=== PATIENT | female | born 1985 | race African-American/Black ===

== ENCOUNTER 2020-10-05 08:33 | Emergency (ER) | payer SELFPAY ==
--- NOTE | 2020-10-05 09:22 | ER Document Report ---
ED General - General Chief Complaint: Flank Pain Stated Complaint: LOW BACK PAIN TRAVEL OUTSIDE OF THE [place] IN LAST 30 DAYS: No - HPI Notes: Chief Complaint: Right flank pain Historian: History obtained from patient HPI: This is a 4-year-old female presents to the emergency department complaining of right sided low back pain x2 years. Patient says she had a positive urine test at home this week and [facility] L[facility] August [facility]. Has not had a confirmatory ultrasound. Says she had called [facility] today just inquiring about her chronic right low back pain and they told her just to go get it checked out somewhere. Right-sided low back pain is nonradiating worse with movement. 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 She or extremity weakness or numbness, incontinence, or saddle anesthesia. History of kidney stones. No dysuria or hematuria. Patient denies any abdominal pain at this time and no vaginal bleeding. She has no history of ectopic . She had 2 prior pregnancies with 2 living children. No other associated symptoms, denies chest pain, shortness of breath, nausea vomiting, fever, or chills. ROS: Constitutional: no fevers. HEENT: no GRE[place], sore throat, or vision changes. CV: no chest pain or palpitations. Resp: no cough or SOB. GI: no abdominal pain, or n/v/d. : . No dysuria, hematuria, or incont. No vaginal bleeding. MSK: Low back pain. Skin: no rashes or itching. Neuro: no seizures, weakness, numbness, or confusion. Hematological: no ecchymosis or easy bleeding. Endocrine: no polyuria/polydipsia, no heat/cold intolerance. Psych: no SI/HI, AH/VH or memory loss. PMHx: Reviewed and agree as charted by RN. PSHx: Reviewed and agree as charted by RN. SOCHx: Reviewed and agree as charted by RN. FHX: No significant familial comorbid conditions directly related to patient complaint Current Medications: Reviewed and agree with the patient medications as charted by the RN. Allergies: Reviewed and agree with the listed allergies as charted by the RN Physical Exam: Vitals: Reviewed in chart as documented by RN. General: Alert and in NAD. Head: Normocephalic; atraumatic Eyes: PERRLA, Conjunctivae clear sclerae non-icteric bilat ENT: no soft palate swelling or uvular deviation Neck: trachea midline, no unilateral swelling/tenderness/lymphadenopathy CV: RRR, no M/R/G; symmetric distal pulses Resp: respirations even and unlabored, CTA bilat. GI: abd soft and nondistended. NTTP. normal BS. no masses/HSM. MSK: FROM of all extremities. No midline CTL spine tenderness/deformity Mild right thoracic paraspinous tenderness. SLR neg bilat. no saddle anesthesia. Sensation intact to BLE. Pulses 2+ and equal to ble. Skin: warm, moist, good turgor. no rash/lesions Neuro: Alert and oriented X 4. following CN 2-12 intact. no unilateral weakness/numbness Psych: No SI/HI or AH/VH. ED Results: Medical Decision-Making: Patient presents with 2 years of ongoing right-sided back pain. He has no neurologic deficits. Suspect her symptoms are muscular skeletal. Patient is requesting to check her "kidneys ". We will check a UA as well as a BMP. pt denies abdominal pain or vaginal bleeding- abdominal exam is benign I have no currentof ectopic or spontaneous miscarriage. UA is reassuring and she has no dysuria and is afebrile, no concerns of pyelonephritis at this time. She is well-appearing and in no acute distress. If work-up is reassuring we will treat patient symptomatically for musculoskeletal back pain and she may follow-up with her SENIOR PRODUCER. Return factors were discussed. Labs reviewed and reassuring. DC home with above plan. Diagnosis: right sided back pain, Condition: stable Disposition: discharge - Related Data Allergies/Adverse Reactions: No Known Allergies Allergy (Verified 10/05/20 08:40) Past Medical History - Social History Smoking Status: Former Smoker Chew tobacco use (# tins/day): No Frequency of alcohol use: None Drug Abuse: None Family History: Reviewed & Not Pertinent Patient has homicidal ideation: No - Immunizations Hx Diphtheria, Pertussis, Tetanus Vaccination: Yes Physical Exam - Vital signs Vitals: Temp Pulse Resp BP Pulse Ox 98.0 F 98 16 115/71 100 10/05/20 08:36 10/05/20 08:36 10/05/20 08:36 10/05/20 08:36 10/05/20 08:36 Course - Vital Signs Vital signs: Temp Pulse Resp BP Pulse Ox 98.0 F 98 16 115/71 100 10/05/20 08:36 10/05/20 08:36 10/05/20 08:36 10/05/20 08:36 10/05/20 08:36 - Laboratory Result Diagrams: 10/05/20 10:23 10/05/20 09:15 Laboratory results interpreted by me: 10/05/20 10/05/20 10/05/20 09:15 09:15 09:15 Sodium 135.1 L Anion Gap 3 L Serum HCG, Qual POSITIVE H Ur Leukocyte Esterase SMALL H Discharge - Discharge Clinical Impression: Chronic right-sided thoracic back pain Qualifiers: Weeks of gestation: unspecified Qualified Code(s): Z34.90 - Encounter for supervision of normal , unspecified, unspecified trimester Condition: Stable Disposition: HOME, SELF-CARE Instructions: Chronic Back Pain ([facility]), ([facility]) Additional Instructions: May take Tylenol for your back pain. Printed instructions for home care. Follow-up with SENIOR PRODUCER to further discuss your symptoms. Return to the ER if your condition worsens or if you develop abdominal pain, vaginal bleeding, fevers, or other concerning signs or symptoms.
[2020-10-05 09:43] LABS: APPEARANCE,URINE SLIGHTLY-CLOUDY; BILIRUBIN,URINE NEGATIVE (NEGATIVE); COLOR,URINE YELLOW; GLUCOSE, URINE NEGATIVE (NEGATIVE); KETONES,URINE NEGATIVE (NEGATIVE); LEUKOCYTE ESTERASE,URINE SMALL (NEGATIVE); NITRITE,URINE NEGATIVE (NEGATIVE); PROTEIN,URINE NEGATIVE (NEGATIVE); UROBILINOGEN,URINE NEGATIVE mg/dL (<2.0)
[2020-10-05 10:05] LABS: ALBUMIN 4.2 g/dL (3.5-5.0); ALKALINE PHOSPHATASE 97 U/L (38-126); ASPARTATE AMINO TRANSFERASE 24 U/L (14-36); BILIRUBIN,DIRECT 0.1 mg/dL (0.0-0.4); BILIRUBIN,TOTAL 0.4 mg/dL (0.2-1.3); BLOOD UREA NITROGEN 12 mg/dL (7-20); CALCIUM 9.7 mg/dL (8.4-10.2); CHLORIDE 105 mmol/L (98-107); GLUCOSE 98 mg/dL (75-110); POTASSIUM 4.5 mmol/L (3.6-5.0)
[2020-10-05 10:10] LABS: CARBON DIOXIDE 27 mmol/L (22-30)
[2020-10-05 10:11] LABS: ANION GAP 3 (5-19)
[2020-10-05 10:32] LABS: ABSOLUTE BASOPHILS # (AUTO) 0.1 10^3/uL (0.0-0.2); ABSOLUTE EOSINOPHILS # (AUTO) 0.1 10^3/uL (0.0-0.6); ABSOLUTE LYMPHOCYTES (AUTO) 2.7 10^3/uL (0.5-4.7); ABSOLUTE MONOCYTES (AUTO) 0.7 10^3/uL (0.1-1.4); ABSOLUTE NEUT (AUTO) 6.6 10^3/uL (1.7-8.2); BASOPHILS % (AUTO) 0.7 % (0-2); EOSINOPHILS % (AUTO) 0.6 % (0-6); HEMOGLOBIN 13.6 g/dL (12.0-15.5); LYMPHOCYTES % (AUTO) 26.7 % (13-45); MEAN CORPUSCULAR HEMOGLOBIN 31.1 pg (27.0-33.4); MEAN CORPUSCULAR HGB CONC 34.1 g/dL (32.0-36.0); MEAN CORPUSCULAR VOLUME 91 fl (80-97); MONOCYTES % (AUTO) 6.8 % (3-13); PLATELET COUNT 303 10^3/uL (150-450); RED BLOOD COUNT 4.38 10^6/uL (3.72-5.28); RED CELL DISTRIBUTION WIDTH 13.1 % (11.5-14.0); SEGMENTED NEUTROPHILS % (AUTO) 65.2 % (42-78); TOTAL CELLS COUNTED % (AUTO) 100 %; WHITE BLOOD COUNT 10.1 10^3/uL (4.0-10.5)
[2020-10-05 11:07] VITALS: BP 109/78
== END 2020-10-05 11:08 | disposition home or self-care (01) ==
LOC: ER 08:33
DX: O99.891 Other specified diseases and conditions complicating pregnancy (principal); M54.9 Dorsalgia, unspecified; M54.5 Low back pain; O99.351 Diseases of the nervous system complicating pregnancy, first trimester; G89.29 Other chronic pain; O26.891 Other specified pregnancy related conditions, first trimester; Z87.442 Personal history of urinary calculi; Z3A.01 Less than 8 weeks gestation of pregnancy; Z87.891 Personal history of nicotine dependence
CPT/HCPCS: 36415; 80053; 81001; 84703; 85025; 99282

== ENCOUNTER 2020-11-03 20:22 | Emergency (ER) | payer MEDICAID ==
--- NOTE | 2020-11-03 21:20 | ER Document Report ---
ED Medical Screen (RME) - General Chief Complaint: Urinary Problem Stated Complaint: BLOODIN URINE Time Seen by Provider: 11/03/20 20:55 Notes: Patient is a G4, P2 7-week gestation female who presents emergency department with blood in her urine. Patient reports that she has right low back pain. States that she has a low back pain all the time. States that she noticed blood in her urine today. She is being seen by the health department for care. Exam: Nontender abdomen. I have greeted and performed a rapid initial assessment of this patient. A comprehensive ED assessment and evaluation of the patient, analysis of test results and completion of medical decision making process will be conducted by an additional ED providers. TRAVEL OUTSIDE OF THE [place] IN LAST 30 DAYS: No - Related Data Allergies/Adverse Reactions: No Known Allergies Allergy (Verified 10/05/20 08:40) Past Medical History - Social History Chew tobacco use (# tins/day): No Frequency of alcohol use: None Drug Abuse: None - Immunizations Hx Diphtheria, Pertussis, Tetanus Vaccination: Yes Physical Exam - Vital signs Vitals: Temp Pulse Resp BP Pulse Ox 98.3 F 85 19 115/76 100 11/03/20 20:29 11/03/20 20:29 11/03/20 20:29 11/03/20 20:29 11/03/20 20:29 Course - Vital Signs Vital signs: Temp Pulse Resp BP Pulse Ox 98.3 F 85 19 115/76 100 11/03/20 20:29 11/03/20 20:29 11/03/20 20:29 11/03/20 20:29 11/03/20 20:29
--- NOTE | 2020-11-03 23:22 | RADIOLOGY REPORT (SQ) ---
EXAM DESCRIPTION: US TRANSVAGINAL COMPLETED DATE/TME: 11/03/2020 22:48 CLINICAL HISTORY: 35 years Female, flank pain; 7 wks gestation COMPARISON: None TECHNIQUE: Transabdominal and transvaginal. LIMITATIONS: None. FINDINGS: Living intrauterine fetus measures 5w6d with ISA of 06/30/2021. No cardiac activity identified at this time. [place]-rump length is 0.3-cm. 1.3 x 0.5 x 0.7 cm subchorionic hemorrhage. 5.0 x 1.8 x 3.5-cm right ovary, 3.1-cm left ovary, 3.2 x 2.2 x 2.1-cm likely left corpus luteum, nabothian cyst, and no free fluid appear otherwise unremarkable. IMPRESSION: Early intrauterine . No measurable cardiac activity. 1.3 cm perigestational hemorrhage. Differential diagnosis includes early viable gestation or ongoing gestational loss. Consider laboratory-ultrasound surveillance in 2 weeks or sooner.
[2020-11-04 00:07] LABS: APPEARANCE,URINE CLEAR; BILIRUBIN,URINE NEGATIVE (NEGATIVE); COLOR,URINE STRAW; GLUCOSE, URINE NEGATIVE (NEGATIVE); KETONES,URINE NEGATIVE (NEGATIVE); LEUKOCYTE ESTERASE,URINE TRACE (NEGATIVE); NITRITE,URINE NEGATIVE (NEGATIVE); PROTEIN,URINE NEGATIVE (NEGATIVE); URINE SPECIFIC GRAVITY 1.003; UROBILINOGEN,URINE NEGATIVE mg/dL (<2.0)
[2020-11-04 01:40] LABS: ABSOLUTE BASOPHILS # (AUTO) 0.1 10^3/uL (0.0-0.2); ABSOLUTE EOSINOPHILS # (AUTO) 0.1 10^3/uL (0.0-0.6); ABSOLUTE MONOCYTES (AUTO) 0.8 10^3/uL (0.1-1.4); ABSOLUTE NEUT (AUTO) 6.7 10^3/uL (1.7-8.2); BASOPHILS % (AUTO) 0.7 % (0-2); EOSINOPHILS % (AUTO) 1.1 % (0-6); HEMATOCRIT 39.6 % (36.0-47.0); HEMOGLOBIN 13.4 g/dL (12.0-15.5); LYMPHOCYTES % (AUTO) 34.1 % (13-45); MEAN CORPUSCULAR HEMOGLOBIN 30.7 pg (27.0-33.4); MEAN CORPUSCULAR HGB CONC 33.7 g/dL (32.0-36.0); MEAN CORPUSCULAR VOLUME 91 fl (80-97); MONOCYTES % (AUTO) 6.4 % (3-13); PLATELET COUNT 312 10^3/uL (150-450); RED BLOOD COUNT 4.35 10^6/uL (3.72-5.28); SEGMENTED NEUTROPHILS % (AUTO) 57.7 % (42-78); TOTAL CELLS COUNTED % (AUTO) 100 %; WHITE BLOOD COUNT 11.7 10^3/uL (4.0-10.5)
[2020-11-04 02:04] LABS: ALBUMIN 4.9 g/dL (3.5-5.0); ALKALINE PHOSPHATASE 86 U/L (38-126); ANION GAP 8 (5-19); ASPARTATE AMINO TRANSFERASE 22 U/L (14-36); BILIRUBIN,DIRECT 0.1 mg/dL (0.0-0.4); BILIRUBIN,TOTAL 0.5 mg/dL (0.2-1.3); BLOOD UREA NITROGEN 9 mg/dL (7-20); CALCIUM 10.6 mg/dL (8.4-10.2); CARBON DIOXIDE 28 mmol/L (22-30); CHLORIDE 102 mmol/L (98-107); GLUCOSE 109 mg/dL (75-110); POTASSIUM 4.1 mmol/L (3.6-5.0)
--- NOTE | 2020-11-04 06:09 | ER Document Report ---
ED GI/ - General Chief Complaint: Urinary Problem Stated Complaint: BLOODIN URINE Time Seen by Provider: 11/03/20 20:55 Primary Care Provider: [facility] [Provider Group] - Follow up as needed Mode of Arrival: Ambulatory Information source: Patient Notes: 35-year-old female presented to ED for complaint of blood in her urine. She states she just noticed it today. She states she also has low back pain but she has had this for years and it is in no different than it normally is. She states she is of 5 para 2 with 2 abortions. She states she should be 7 weeks . She states she will be seen at the health department for p renatal care. She denies any pain in the abdomen. Constitutional: Negative for fever. HENT: Negative for sore throat. Eyes: Negative for visual changes. Cardiovascular: Negative for chest pain. Respiratory: Negative for shortness of breath. Gastrointestinal: Negative for abdominal pain, vomiting or diarrhea. Genitourinary: Patient states she is 7 weeks and has some blood in her urine. Musculoskeletal: States she has had low back pain for years and she still has the same low back pain. Skin: Negative for rash. Neurological: Negative for headaches, weakness or numbness. 10 point ROS negative except as marked above and in HPI. PHYSICAL EXAMINATION: GENERAL: Well-appearing, well-nourished and in no acute distress. HEAD: Atraumatic, normocephalic. EYES: Pupils equal round extraocular movements intact, conjunctiva are normal. ENT: Nares patent NECK: Normal range of motion LUNGS: No respiratory distress Musculoskeletal: Normal range of motion NEUROLOGICAL: Normal speech, normal gait. PSYCH: Normal mood, normal affect. SKIN: Warm, Dry, normal turgor, no rashes or lesions noted. TRAVEL OUTSIDE OF THE [place] IN LAST 30 DAYS: No - HPI Patient complains to provider of: Other - Blood in the urine that started yesterday Onset: Yesterday Timing/Duration: Intermittent - States she noticed blood in the urine Quality of pain: Other - Back pain that she states is chronic she has had it for years Severity at maximum: Moderate Severity in ED: Mild, Moderate Pain Level: 3 Location: Low back - Chronic low back pain Vaginal bleeding (Compared to normal period): Spotting - She just noted some blood in her urine LMP: August 31, 2020 : 5 Para: 2 Abortions: 2 heart tones (bpm): 0 ABO type: O Rh factor: pos OB ultrasound done: Yes vitamins taken: Yes Associated symptoms: Other - Chronic back pain Exacerbated by: Denies Relieved by: Denies Similar symptoms previously: Yes Recently seen / treated by doctor: No - Related Data Allergies/Adverse Reactions: No Known Allergies Allergy (Verified 10/05/20 08:40) Past Medical History - General Information source: Patient - Social History Smoking Status: Never Smoker Chew tobacco use (# tins/day): No Frequency of alcohol use: None Drug Abuse: None Lives with: Family Family History: Reviewed & Not Pertinent Patient has suicidal ideation: No Patient has homicidal ideation: No - Past Medical History Cardiac Medical History: Reports: None Pulmonary Medical History: Reports: None EENT Medical History: Reports: None Neurological Medical History: Reports: None Endocrine Medical History: Reports: None Renal/ Medical History: Reports: None Malignancy Medical History: Reports: None GI Medical History: Reports: None Musculoskeletal Medical History: Reports Other - Chronic back pain Skin Medical History: Reports None Psychiatric Medical History: Reports: None Traumatic Medical History: Reports: None Infectious Medical History: Reports: None Surgical Hx: Negative Past Surgical History: Reports: None - Immunizations Hx Diphtheria, Pertussis, Tetanus Vaccination: Yes Physical Exam - Vital signs Vitals: Temp Pulse Resp BP Pulse Ox 98.3 F 85 19 115/76 100 11/03/20 20:29 11/03/20 20:29 11/03/20 20:29 11/03/20 20:29 11/03/20 20:29 Course - Re-evaluation Re-evalutation: 11/04/20 09:26 Labs and ultrasound were discussed with patient written report of labs and ultrasound were given to patient. Patient was informed that there was no cardiac activity on the ultrasound. She was informed that this could be because of her early or it could be it was a pending miscarriage. Patient was instructed to please return in 48 hours to the lab to get a follow-up serum quant to determine viability of the . Verbalized understanding and agreement with treatment plan and patient was discharged home. - Vital Signs Vital signs: Temp Pulse Resp BP Pulse Ox 98.1 F 66 16 126/74 H 100 11/04/20 06:33 11/04/20 06:33 11/04/20 06:33 11/04/20 06:33 11/04/20 06:33 - Laboratory Results Result Diagrams: 11/04/20 01:20 11/04/20 01:20 Laboratory Results Interpreted: 11/03/20 11/04/20 11/04/20 22:45 01:20 01:20 WBC 11.7 H Calcium 10.6 H Beta HCG, Quant 92963.00 H Urine Blood LARGE H Ur Leukocyte Esterase TRACE H Critical Laboratory Results Reviewed: No Critical Results - Radiology Results Critical Radiology Results Reviewed: No Critical Results Discharge - Discharge Clinical Impression: Hematuria Qualifiers: Hematuria type: unspecified type Qualified Code(s): R31.9 - Hematuria, unspecified Chronic back pain Qualifiers: Back pain location: thoracic back pain Back pain laterality: unspecified Qualified Code(s): M54.6 - Pain in thoracic spine Condition: Stable Disposition: HOME, SELF-CARE Instructions: [facility] Additional Instructions: Hematuria Hematuria, or blood in your urine, can be caused by minor medical problems, such as a bladder infection, or by more serious medical conditions, such as kidney stones or even tumors of the bladder or kidney. If the cause of the hematuria is known (such as a bladder infection) and can be treated, it may not need further evaluation. If the cause is not known, it will usually require further evaluation by a specialist, such as a urologist. In particular, unexplained hematuria in the older patient must be evaluated to rule out a serious condition, such as a bladder or kidney tumor. If the hematuria worsens or you are passing clots and then are unable to urinate, you should be re-evaluated. A catheter may need to be placed in the bladder to permit passage of urine. If you develop high fever, severe pain, or other new or worsening symptoms, return to the Emergency Department for re- evaluation. Your ultrasound for the baby did not show a heartbeat at this time. This can be due to it being too early to show the heartbeat. We will get a repeat hCG in 48 hours and then review this with you. Chronic Back Pain Chronic back pain (pain persisting longer than three months) is a common problem. A medical evaluation can look for herniated disc, arthritis, osteoporosis, tumors, and infections. But at least half the time, there's no obvious treatable cause. Anxiety and depression tend to worsen back pain. A heating pad, used for 15-20 minutes at a time, can ease pain. For this type of back pain, narcotic medicines should be avoided. Muscle relaxers are rarely helpful unless you're having spasms. Activity is important. Find an aerobic exercise program that your back can tolerate. Too much rest makes back pain worse. Specific back exercises are usually prescribed to strengthen the back and abdominal muscles. Often, a physical therapist can help. Avoid heavy lifting, working while bent over, or standing with both knees straight. Most back pain patients do better with a firm mattress. If new symptoms of a "herniated disc" (radiation of pain, numbness, or tingling down the back of the leg or weakness in the leg) occur, you should be re-examined. Acetaminophen Acetaminophen may be taken for pain relief or fever control. It's much sa mehul than aspirin, offering a wider range of "safe" dosages. It is safe during . Some brand names are Tylenol, Panadol, Datril, Anacin 3, Tempra, and Liquiprin. Acetaminophen can be repeated every four hours. The following are maximum recommended dosages: WEIGHT Dose Drops Elixir Chewable(80mg) (LBS.) drprs=droppers tsp=teaspoon 6 40 mg .4 ml (1/2) 6-11 80 mg .8 ml (full) 1/2 tsp 1 tab 12-16 120 mg 1 1/2 drprs 3/4 tsp 1 1/2 tabs 17-23 160 mg 2 drprs 1 tsp 2 tabs 24-30 240 mg 3 drprs 1 1/2 tsp 3 tabs 30-35 320 mg 2 tsp 4 tabs 36-41 360 mg 2 1/4 tsp 4 1/2 tabs 42-47 400 mg 2 1/2 tsp 5 tabs 48-53 480 mg 3 tsp 6 tabs 54-59 520 mg 3 1/4 tsp 6 1/2 tabs 60-64 560 mg 3 1/2 tsp 7 tabs 65-70 600 mg 3 3/4 tsp 7 1/2 tabs 71-76 640 mg 4 tsp 8 tabs 77-82 720 mg 4 1/2 tsp 9 tabs 83-88 800 mg 5 tsp 10 tabs >89 pounds or adults 650 mg to 900 mg Acetaminophen can be repeated every four hours. Maximum daily dose not to exceed 4000 mg. These maximum recommended dosages are slightly higher than the dosages written on the product container, but these dosages are very safe and well below the toxic dosage for acetaminophen. : You are . care is best started as early in as possible. If you're unsure about continuing this , you should discuss this with your physician or with any commodity buyer at [facility]. You should take only medications approved by your physician. Acetaminophen can safely be taken for minor pains. As a rule, medication for chronic conditio ns such as asthma or seizures can safely be continued. You should discuss with the physician every medicine you take. Any regular exercise program can be continued. Talk to your physician, however, before engaging in competitive or demanding sports. Alcohol, smoking, and "street drugs" are dangerous to your baby. Cocaine is especially dangerous. Don't use any illicit drugs! BLEEDING DURING EARLY : You have been evaluated for passing blood while . While we take this symptom very seriously, most women with your degree of bleeding will go on to have a perfectly normal baby. At this time, there is no indication that a miscarriage will occur. (A miscarriage occurs when the fetus is abnormal. There is no medicine or treatment to prevent it.) A more serious cause of bleeding is tubal (or ectopic) . An ultrasound usually can show whether the is in the uterus or in the tube. Sometimes in early , no fetus is seen. In this case, careful follow-up, including repeat blood tests and repeat ultrasound, is necessary. Do not douche or have sex for at least a week, or until OK'd by the doctor. Don't use tampons. Call the doctor or return for re-examination if there is an increase in bleeding or cramping, extreme weakness, fainting, new abdominal pain, fever, or passage of tissue. REPEAT BLOOD TEST: At this time, it is uncertain if you have a viable . During the first three months of , the hormone produced from the placenta will steadily rise, usually doubling in value every 2 - 3 days. In order to determine if your is viable and likely be succesful, a repeat of this blood test for the hormone is recommended in 2 - 3 days. An order for this test to be done as an outpatient is being provided. After you have this repeat test done, call your doctor or call us for the results. If the value of the test is increasing as would be expected in a normal , then your is likely to be ok. However, if the value of the test is declining, it will suggest something has happened with your and it will not likely be a successful . FOLLOW-UP CARE: If you have been referred to a physician for follow-up care, call the [facility] office for an appointment as you were instructed or within the next two days. If you experience worsening or a significant change in your symptoms (very heavy bleeding with large clots of blood, passage of tissue, more severe abdominal / pelvic pain or cramping, feeling faint or severe weakness, fever, etc.), notify the physician immediately or return to the Emergency Department at any time for re-evaluation. OBSTETRIC-GYNECOLOGIC (OB-RAIL [facility]) [facility] [place]: [facility] [address] [place] [address] [phone] Forms: Follow-Up Laboratory Testing Referrals: [facility] [Provider Group] - Follow up as needed
[2020-11-04 06:38] VITALS: BP 126/74
== END 2020-11-04 06:39 | disposition home or self-care (01) ==
LOC: ER 20:22
DX: O26.91 Pregnancy related conditions, unspecified, first trimester (principal); R31.9 Hematuria, unspecified; M54.6 Pain in thoracic spine; M54.5 Low back pain; Z3A.01 Less than 8 weeks gestation of pregnancy
CPT/HCPCS: 36415; 76817; 80053; 81001; 83690; 84702; 85025; 86900; 86901; 93976; 99284

== ENCOUNTER → 2020-11-06 | Outpatient (CLI) | payer MEDICAID | LOC: OD 14:26 | PROVIDERS: ATTEND Nurse Practitioner Family | DX: O20.9 Hemorrhage in early pregnancy, unspecified (principal) | CPT/HCPCS: 36415; 84702 ==